=== PATIENT | female | born 1995 | race Two or more races ===

== ENCOUNTER 2018-06-06 22:35 | Outpatient (CLI) | payer OTHER ==
[2018-06-06 23:04] VITALS: BP 126/65
[2018-06-07 00:18] LABS: BASOPHIL (%) 0.2 % (0-1); EOSINOPHIL (%) 0.6 % (0-5); EOSINOPHIL COUNT 0.1 K/uL (0-0.3); HEMATOCRIT 29.4 % (36.0-46.0); HEMOGLOBIN 9.9 G/DL (11.9-15.5); IMMATURE GRANULOCYTE (%) 0.6 % (0.0-0.7); LYMPHOCYTE (%) 24.1 % (15-42); LYMPHOCYTE COUNT 2.5 K/uL (1.0-2.8); MCH 29.5 PG (29.0-34.0); MCHC 33.7 G/DL (30.0-36.0); MCV 87.5 FL (83-99); MONOCYTE COUNT 0.6 K/uL (0-0.8); NEUTROPHIL (%) 68.5 % (45-76); PLATELET COUNT 314 K/uL (156-360); RBC DIS.WIDTH-CV 16.7 % (11.8-14.6); RBC DIS.WIDTH-SD 52.8 % (39-53); RED BLOOD COUNT 3.36 M/uL (3.80-5.20); WHITE BLOOD COUNT 10.3 K/uL (4.1-10.2)
[2018-06-07 00:29] LABS: ALBUMIN 3.5 g/dL (3.2-4.8)
[2018-06-07 00:30] LABS: CHLORIDE 105 mEq/L (99-109); POTASSIUM 3.7 mEq/L (3.7-5.4); SODIUM 137 mEq/L (136-147)
[2018-06-07 00:32] LABS: GLUCOSE 96 mg/dL (70-99); TOTAL PROTEIN 5.9 g/dL (6.4-8.3)
[2018-06-07 00:34] LABS: TOTAL BILIRUBIN 0.5 mg/dL (0.0-1.0)
[2018-06-07 00:35] LABS: ALKALINE PHOSPHATASE 205 IU/L (3-129)
[2018-06-07 00:36] VITALS: BP 118/55
[2018-06-07 00:36] LABS: CREATININE 0.6 mg/dL (0.6-1.3); GFR ESTIMATE (CALCULATED) > 59 mL/min/
[2018-06-07 00:37] LABS: AST (GOT) 15 IU/L (2-34); UREA NITROGEN (BUN) 6 mg/dL (9-23)
[2018-06-07 00:38] LABS: ALT (GPT) 9 IU/L (3-49)
[2018-06-07] MEDS ORDERED: IRON 100 PLUS1 EACH PO (01:03)
[2018-06-07] MEDS ORDERED: VITAMIN C500 M6 PO (01:05)
[2018-06-07] MEDS ORDERED: TUMS500 MG PO (01:06)
[2018-06-07 02:14] VITALS: BP 118/67
== END 2018-06-07 03:06 | disposition home or self-care (01) ==
LOC: LDRP-OP 22:35 → 2WEST 22:36
PROVIDERS: Advanced Practice Midwife
DX: O47.1 False labor at or after 37 completed weeks of gestation (principal); O12.03 Gestational edema, third trimester; O99.013 Anemia complicating pregnancy, third trimester; O26.893 Other specified pregnancy related conditions, third trimester; R51 Headache; Z3A.38 38 weeks gestation of pregnancy
CPT/HCPCS: 59025; 80053; 81003; 85025; 87086; G0378